=== PATIENT | male | born 1995 | race Two or more races ===

== ENCOUNTER 2024-05-29 08:37 | Emergency (ER) | payer OTHER ==
[~2024-05-29] VITALS: Ht 182.9 cm; Wt 95.3 kg
[2024-05-29] MEDS ORDERED: IBUPROFEN 600 MG TABLET ONE (09:35)
[2024-05-29] MEDS ORDERED: LIDOCAINE 5% (PATCH) 1 EA PATCH TP ONE (09:35)
[2024-05-29] MEDS ORDERED: LIDO30AD10 TP (09:37)
[2024-05-29] MEDS ORDERED: CYCL5TAB PO (09:37)
[2024-05-29] MEDS ORDERED: IBUP-1955 PO (09:37)
[2024-05-29] MEDS: IBUPROFEN 600 MG TABLET PO ONE (09:43)
[2024-05-29] MEDS: LIDOCAINE 5% (PATCH) 1 EA PATCH TP STA (09:44)
[2024-05-29 09:46] VITALS: BP 130/87; TEMP 98; O2SAT 99
== END 2024-05-29 09:47 | disposition home or self-care (01) ==
LOC: ER 08:42
DX: S43.401A Unspecified sprain of right shoulder joint, initial encounter (principal); S09.90XA Unspecified injury of head, initial encounter; H92.01 Otalgia, right ear; W22.09XA Striking against other stationary object, initial encounter; Y93.89 Activity, other specified; Y92.89 Other specified places as the place of occurrence of the external cause; Y99.8 Other external cause status